=== PATIENT | male | born 1950 | race Caucasian/White ===

== ENCOUNTER 2021-08-16 19:17 | Emergency (ER) | payer BC, MEDICARE ==
[~2021-08-16] VITALS: Ht 177.8 cm; Wt 113.0 kg
[2021-08-16 20:07] VITALS: BP 163/97
[2021-08-16] MEDS ORDERED: OXYC-658 PO (23:21)
== END 2021-08-16 23:34 | disposition home or self-care (01) ==
LOC: ER 19:19
DX: M25.561 Pain in right knee (principal); E11.9 Type 2 diabetes mellitus without complications; G89.29 Other chronic pain; W19.XXXA Unspecified fall, initial encounter; Y93.89 Activity, other specified; Y92.89 Other specified places as the place of occurrence of the external cause; Y99.8 Other external cause status
CPT/HCPCS: 73564; 99284